=== PATIENT | male | born 1960 | race Caucasian/White ===

== ENCOUNTER 2024-11-22 08:03 | Emergency (ER) | payer MEDICAID, SELFPAY ==
[2024-11-22 08:19] VITALS: BP 112/81; PULSE 89; RESP 18; TEMP 36.6; O2SAT 98; BMI 24.3
--- NOTE | 2024-11-22 08:23 | XR_ITS ---
Examination: Duplex scan of the lower extremity, unilateral right Date and time of exam: November 22, 2024 0829 hours INDICATIONS: Onset right leg pain beginning 5 days ago Technique: Duplex scan of the extremity veins using B-mode/grayscale imaging and Doppler spectral analysis and color flow Attention is directed to internal echogenicity, compression and augmentation involving these veins, color flow assessment, spectral analysis Findings: Major deep venous structures in the extremity demonstrate normal course and caliber. There is no evidence of deep vein thrombosis. Normal color flow and spectral analysis Impression: Negative for DVT.. Positive for superficial thrombus in the right gastrocnemius veins mid calf
--- NOTE | 2024-11-22 08:23 | XR_ITS ---
Examination: Tibia-Fibula, right , 2 views Technique: Tibia-fibula AP lateral 2 views Date and time of exam: November 23, 2023 0944 hours INDICATIONS: Sudden onset right lower leg pain beginning 2 days ago. FINDINGS: No fracture or dislocation No cortical bone destruction No opaque foreign body IMPRESSION: No fracture or dislocation
[2024-11-22 09:37] LABS: Basophils % (Auto) 0 % (0-2.5); Eosinophils # (Auto) 0.3 Thou/mm3 (0.0-0.5); Eosinophils % (Auto) 3 % (0-10); Hematocrit 42.3 % (41.0-53.0); Hemoglobin 14.7 g/dL (13.5-16.0); Immature Granulocytes % (Auto) 0 % (0-0); Immature Granulocytes Auto 0.02 Thou/mm3 (0.00-0.00); Lymphocytes % (Auto) 22 % (10-50); Mean Corpuscular HGB Conc 34.8 g/dl (31.0-37.0); Mean Corpuscular Hemoglobin 30.6 pg (25.0-35.0); Mean Corpuscular Volume 88 fL (80-100); Monocytes # (Auto) 0.6 Thou/mm3 (0.0-0.8); Monocytes % (Auto) 7 % (0-12); Neutrophils # (Auto) 6.3 Thou/mm3 (1.8-7.7); Neutrophils % (Auto) 68 % (37-80); Nucleated Red Blood Cell % 0 /100 WBC (0); Platelet Count 165 Thou/mm3 (140-440); RDW Standard Deviation 42.7 fL (35.1-43.9); White Blood Count 9.2 Thou/mm3 (3.8-10.6)
[2024-11-22 09:55] LABS: Partial Thromboplastin Time 29.6 Seconds (22.0-36.0)
[2024-11-22 10:05] LABS: Alanine Aminotransferase 8 U/L (10-49); Albumin/Globulin Ratio 1.4 (1.2-2.2); Alkaline Phosphatase 108 U/L (46-116); Anion Gap 6 (7-16); Aspartate Amino Transferase 11 U/L (0-34); BUN/Creatinine Ratio 14 Ratio (12-20); Bilirubin,Total 0.6 mg/dL (0.3-1.2); Blood Urea Nitrogen 14 mg/dL (9-23); Calcium 8.4 mg/dL (8.3-10.6); Calcium (Corrected) 8.4 mg/dL (8.5-10.1); Carbon Dioxide 29.2 mMol/L (20.0-31.0); Chloride 106 mMol/L (98-107); Globulin 2.9 gm/dL (2.3-3.5); Glucose 113 mg/dL (74-106); Osmolality,Calculated 282 (275-295); Potassium 4.3 mMol/L (3.4-5.1); Sodium 141 mMol/L (136-145); Total Protein 6.9 gm/dL (5.7-8.2); eGFR > 60 See Note
--- NOTE | 2024-11-22 11:09 | PD.EDLOWEX ---
Lower Extremity Injury RME/HPI General Chief Complaint: Extremity Injury, Lower Stated Complaint: Right calf pain Time Seen by Provider: 11/22/24 08:20 Arrival date/time: 11/22/24 08:03 64-year-old male presents emergency department today for complaints of right-sided Pain ongoing for approximately 1 week patient reports no numbness or tingling reports no difficulty ambulating no recent injury Limitations: no limitations Related Data Home Medications ?Medication ?Instructions ?Recorded ?Confirmed Cyclobenzaprine * (FLEXERIL *) 10 mg PO HS PRN MUSCLE RELAXANT #0 04/19/14 tabs ibuprofen 800 mg tablet 800 mg PO BID PRN PAIN #0 tabs 04/19/14 Previous Rx's ?Medication ?Instructions ?Recorded cyclobenzaprine 10 mg tablet 10 mg PO TID PRN muscle spasm 10 11/22/24 days #30 tab-caps ibuprofen 800 mg tablet 800 mg PO TID PRN pain #30 tabs 11/22/24 Allergies Allergy/AdvReac Type Severity Reaction Status Date / Time NKA* Allergy Uncoded 11/22/24 08:06 Review of Systems Review of Systems Systems Reviewed: All systems reviewed, normal except as documented Constitutional Constitutional: Reports system reviewed and no additional complaints, except as documented, Denies fever(s) and Denies headache(s) Eyes Eyes: Reports system reviewed and no additional complaints, except as documented and Denies blurry vision ENT Ears, Nose, Mouth, and Throat: Reports system reviewed and no additional complaints, except as documented, Denies headache(s), Denies nasal congestion and Denies nasal discharge Cardiovascular Cardiovascular: Reports system reviewed and no additional complaints, except as documented, Denies chest pain and Denies dyspnea Respiratory Respiratory: Reports system reviewed and no additional complaints, except as documented, Denies chest congestion, Denies cough and Denies dyspnea Gastrointestinal Gastrointestinal: Reports system reviewed and no additional complaints, except as documented and Denies abdominal pain Musculoskeletal Musculoskeletal: Reports system reviewed and no additional complaints, except as documented, Denies abnormal gait, Denies arthralgias, Denies deformity, Denies numbness, Reports stiffness and Denies tingling Integumentary/Breasts Skin/Breast: Reports system reviewed and no additional complaints, except as documented and Denies rash Neurologic Neurologic: Reports system reviewed and no additional complaints, except as documented, Reports as per HPI, Denies abnormal gait, Denies headache(s), Denies numbness and Denies tingling Past Medical History Past Medical History CARDIAC: Negative Congestive Heart Failure RESPIRATORY: Negative Chronic Obstructive Pulmonary Disease (COPD) GENITOURINARY: Negative Renal Disease ENDOCRINE: Negative Diabetes Mellitus Type 1 or Diabetes Mellitus Type 2 Social History SMOKING STATUS: Never smoker ED Exam General Limitations: Present no limitations General appearance: Present alert and in no apparent distress Head Head exam: Present atraumatic, normocephalic and normal inspection Eye Eye exam: Present normal appearance, PERRL and EOMI; Absent conjunctival injection ENT ENT exam: Present normal exam, normal oropharynx and mucous membranes moist Neck Neck exam: Present normal inspection, full ROM and trachea midline Chest Chest inspection: Present normal inspection and symmetric chest wall rise Respiratory Respiratory exam: Present normal lung sounds bilaterally Cardiovascular Cardiovascular exam: Present regular rate, normal rhythm and normal heart sounds Abdominal Exam Abdominal exam: Present soft and normal bowel sounds Extremities Exam Extremities exam: Present full ROM, tenderness, normal capillary refill and calf tenderness; Absent pedal edema or joint swelling Back Exam Back exam: Present normal inspection and full ROM Neurological Exam Neurological exam: Present alert, oriented X3 and CN II-XII intact Psychiatric Psychiatric exam: Present normal affect and normal mood Skin Skin exam: Present warm, dry, intact and normal color Course Quality Measures none Orders Category Date Time Status US venous doppler LE RT Stat Exams 11/22/24 08:23 Completed XR tibia fibula RT 2V Stat Exams 11/22/24 08:23 Completed CBC Stat Lab 11/22/24 09:27 Completed Comprehensive Metabolic Panel Stat Lab 11/22/24 09:27 Completed Partial Thromboplastin Time Stat Lab 11/22/24 09:27 Completed Prothrombin Time with INR Stat Lab 11/22/24 09:27 Completed Vital Signs Vital signs: Vital Signs Temperature 97.8 F 11/22/24 08:19 Pulse Rate 89 11/22/24 08:19 Respiratory Rate 18 11/22/24 08:19 Blood Pressure 112/81 11/22/24 08:19 Pulse Oximetry (%) 98 11/22/24 08:19 Oxygen Delivery Method Room Air 11/22/24 08:19 O2 saturation 98% room air within normal limits Extremity Injury, Lower MDM Narrative MDM Narrative:: 64-year-old male presents emergency department today for complaints of right-sided Pain ongoing for approximately 1 week patient reports no numbness or tingling reports no difficulty ambulating no recent injury On exam patient well-appearing patient does not appear toxic no acute distress patient walks steady gait Imaging obtained no acute emergent findings noted Patient is superficial thrombosis no acute DVT Patient discharged home in no distress to follow-up with primary care doctor in the next 24 to 48 hours and for any worsening symptoms to return to the ER immediately Patient data [place] [facility] [place] Clinical information provided by:: patient Social determinants that could affect healthcare access:: none Patient has the following chronic illnesses:: History How is presenting disease/condition affected by chronic disease/condition?: uneffected by Evaluation data The following diagnostics were reviewed and interpreted by me:: lab results and radiology exam(s) Lab and/or radiology exams considered but not ordered:: Labs radiology obtained Interpretation Summary: Reviewed by me Medications / Prescriptions Medications or Prescriptions considered but not ordered:: Given Medication administrations:: Given Consultations Consultation(s) initiated? (list below): No Diagnosis Extremity Injury, Lower Differential Diagnosis: other (DVT, superficial blood clot, muscle strain) Most likely diagnosis given after review of the tests above:: Superficial thrombosis, muscle strain Admission Indicated Admission indicated?: not indicated Admission Request Was there a request for admission?: No Disposition Plan Disposition Plan: Discharge Discharge Attestation Discharge Attestation: The patient and all family members were given an opportunity to ask questions and understood the discharge instructions. Discharge instructions specifically effects, indications for sooner follow up or return to the emergency department, and the expected course of current diagnosis. Patient condition: Stable Discharge Plan Plan Patient Disposition: HOME (Self Care) Discharge Disposition comment: Stable Prescriptions/Referrals Prescriptions/Med Rec: New cyclobenzaprine 10 mg tablet 10 mg PO TID PRN (Reason: muscle spasm) 10 Days Qty: 30 0RF ibuprofen 800 mg tablet 800 mg PO TID PRN (Reason: pain) Qty: 30 0RF No Action ibuprofen 800 MG tablet 800 mg PO BID PRN (Reason: PAIN) Qty: 0 Cyclobenzaprine * (FLEXERIL *) 10 MG tablet 10 mg PO HS PRN (Reason: MUSCLE RELAXANT) Qty: 0 Referrals: Daniel Mario MD [Primary Care Provider] - In 1 week Problem List Clinical Impression: Leg pain, right, Superficial thrombosis of right lower extremity Patient/Caregiver Discharge Instructions Education Materials: ED Myalgias Additional Instructions: Please follow up with your primary care doctor in the next 24-48hrs for any worsening symptoms return here immediately Print Language: Nauruan Stand Alone Forms: Niki Award Info., Patient Portal Info Letter PA/VAMP LINER Supervising Physician PA/VAMP LINER Supervising Physician: Dr. prater
== END 2024-11-22 11:15 | disposition home or self-care (01) ==
PROVIDERS: Nurse Practitioner Primary Care; Emergency Provider Emergency Medicine; PCP Family Medicine
DX: I82.811 Embolism and thrombosis of superficial veins of right lower extremity (principal)
CPT/HCPCS: 36415; 73590; 80053; 85025; 85610; 85730; 93971; 99284